=== PATIENT | female | born 1940 | race Caucasian/White ===

== ENCOUNTER → 2021-02-13 11:14 | Outpatient (REF) | payer MEDICARE, SELFPAY | LOC: ANHLAB 11:14 | PROVIDERS: Visit Provider Nurse Practitioner | DX: D49.2 Neoplasm of unspecified behavior of bone, soft tissue, and skin (principal) | CPT/HCPCS: 88305 ==

== ENCOUNTER → 2021-04-28 07:22 | Outpatient (REF) | payer MEDICARE, SELFPAY | LOC: ANHLAB 07:22 | PROVIDERS: Visit Provider Nurse Practitioner | DX: C44.1121 Basal cell carcinoma of skin of right upper eyelid, including canthus (principal) | CPT/HCPCS: 88305; 88331 ==